=== PATIENT | female | born 2000 | race Caucasian/White ===

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

== ENCOUNTER 2021-07-16 23:57 | Emergency (ER) | payer BC, OTHER ==
--- NOTE | 2021-07-17 00:56 | EDM.PDOC ---
ED HPI GENERAL MEDICAL PROBLEM - General Chief Complaint: Genitourinary Problem Stated Complaint: PEEING BLOOD Time Seen by Provider: 07/17/21 00:28 - History of Present Illness INITIAL COMMENTS - FREE TEXT/NARRATIVE: History of present illness: [] The patient feels like she felt before when she had a bladder infection. She has burning when she urinates and urethral pain. She has pain down into her low suprapubic area and urethra even between urinations. She has frequency and urgency as well. She does not feel like she can empty. She does not have any back pain fever nausea vomiting or other systemic signs of infection. The patient does have blood in her urine this time and that is unusual for her. She does not bleed or bruise easily historically Review of systems: As per history of present illness and below otherwise all systems reviewed and negative. Past medical history: As per history of present illness and as reviewed below otherwise noncontributory. Surgical history: As per history of present illness and as reviewed below otherwise noncontributory. Social history: No reported history of drug or alcohol abuse. Family history: As per history of present illness and as reviewed below otherwise noncontributory. Physical exam: Constitutional - well developed, well-nourished and in no acute distress HEENT - normocephalic, no evidence of trauma - external nose and mouth normal - no mass in neck and no JVD - mucosae moist EYES - full EOM, PERRL, no icterus - no evidence of inflammation, injection, or drainage Respiratory - no respiratory distress, equal bilateral expansion, lungs clear to auscultation and no abnormal lung sounds Cardiovascular - Regular Rhythm with S1 and S2 appreciated and no murmur, gallop or rub. GI - abdomen soft without distension or organomegaly - normal bowel sounds - no guard or rebound Musculoskeletal no gross deformity of long bones or joints - no tenderness, swelling or edema Neurologic - Alert and oriented times four - CN II-XII grossly intact - motor sensory and coordination symmetrically normal Psychiatric - appropriate mood and affect with normal thought content Hematologic - No petechiae or purpura - mucosa appropriate color and sclera not pale - normal nail bed color and refill Integument - no rash or evidence of trauma - normal turgor Diagnostics: [] Therapeutics: [] Impression: [] Plan: [] Definitive disposition and diagnosis as appropriate pending reevaluation and review of above. Pelvic Pain Score (Numeric/FACES): 9 - Related Data Allergies Allergy/AdvReac Type Severity Reaction Status Date / Time midazolam [From Versed] Allergy Cannot Verified 07/17/21 00:36 Remember Home Meds: Home Meds Ethinyl Estradiol/Drospirenone [Loryna 3 mg-0.02 mg Tablet] 1 tab PO DAILY 09/16/18 [History] Sertraline [Zoloft] mg PO DAILY 05/28/19 [History] Escitalopram [Lexapro] 10 mg PO DAILY 07/17/21 [History] Phenazopyridine [Pyridium] 100 mg PO TID PRN #6 tablet 07/17/21 [Rx] nitrofurantoin macrocrystaL [Macrodantin] 50 mg PO QID 5 Days #20 cap 07/17/21 [Rx] Past Medical History Neurological History: Reports: Other (See Below) Other Neuro History: syncopal episodes Psychiatric History: Reports: Anxiety, Depression - Infectious Disease History Infectious Disease History: Reports: None - Past Surgical History HEENT Surgical History: Reports: Oral Surgery Social & Family History - Family History Family Medical History: No Pertinent Family History - Tobacco Use Tobacco Use Status *Q: Never Tobacco User - Caffeine Use Caffeine Use: Reports: Coffee, Energy Drinks - Recreational Drug Use Recreational Drug Use: No ED ROS GENERAL - Review of Systems Review Of Systems: Comprehensive ROS is negative, except as noted in HPI. ED EXAM, GENERAL - Physical Exam Exam: See Below Free Text/Narrative:: My physical exam is in the HPI Course - Vital Signs Last Recorded V/S: Last Vital Signs Temp 36.1 C 07/17/21 00:37 Pulse 91 07/17/21 00:37 Resp 16 07/17/21 00:37 BP 117/72 07/17/21 00:37 Pulse Ox 96 07/17/21 00:37 - Orders/Labs/Meds Orders: Active Orders 24 hr Category Date Time Status CULTURE URINE [MREF] Stat Lab 07/17/21 00:20 Received Labs: Laboratory Tests 07/17/21 07/17/21 Range/Units 00:20 00:20 Urine Color BROWN Urine Appearance SLT CLOUDY Urine pH 6.0 (5.0-8.0) Ur Specific [place] >= 1.030 (1.001-1.035) Urine Protein 100 H (NEGATIVE) mg/dL Urine Glucose (UA) NEGATIVE (NEGATIVE) mg/dL Urine Ketones TRACE H (NEGATIVE) mg/dL Urine Occult Blood LARGE H (NEGATIVE) Urine Nitrite NEGATIVE (NEGATIVE) Urine Bilirubin NEGATIVE (NEGATIVE) Urine Urobilinogen 0.2 (<2.0) EU/dL Ur Leukocyte Esterase MODERATE H (NEGATIVE) Urine RBC 60-70 (0-2/HPF) Urine WBC 50-60 (0-5/HPF) Ur Epithelial Cells FEW (NONE-FEW) Urine Bacteria 1+ H (NEGATIVE) Urine Mucus LIGHT (NONE-MOD) Urine HCG, Qual NEGATIVE (NEGATIVE) Meds: Medications Discontinued Medications Generic Name Dose Route Start Last Admin Trade Name Freq PRN Reason Stop Dose Admin Hydrocodone Bitart/Acetaminophen 1 tab 07/17/21 00:54 07/17/21 01:14 Acetaminophen/Hydrocodone 325-7.5 Mg Tab PO 07/17/21 00:55 1 tab STAT STA Administration Phenazopyridine HCl 200 mg 07/17/21 00:53 07/17/21 01:14 Phenazopyridine 200 Mg Tab PO 07/17/21 00:54 200 mg ONETIME ONE Administration Departure - Departure Time of Disposition: 02:11 Disposition: Home, Self-Care 01 Condition: Good Clinical Impression: Hemorrhagic cystitis - Discharge Information Prescriptions: nitrofurantoin macrocrystaL [Macrodantin] 50 mg PO QID 5 Days #20 cap Phenazopyridine [Pyridium] 100 mg PO TID PRN #6 tablet PRN Reason: Dysuria Instructions: Urinary Tract Infection, Adult, [id number], Hemorrhagic Cystitis Referrals: Segundo Jeff MD [Primary Care Provider] - Forms: ED Department Discharge Additional Instructions: Increase fluids. Cranberry juice advised. [facility] [address] [place] [id number] [place] [address] The following information is given to patients seen in the emergency department who are being discharged to home. This information is to outline your options for follow-up care. We provide all patients seen in our emergency department with a follow-up referral. The need for follow-up, as well as the timing and circumstances, are variable depending upon the specifics of your emergency department visit. If you don't have a primary care physician on staff, we will provide you with a referral. We always advise you to contact your personal physician following an emergency department visit to inform them of the circumstance of the visit and for follow-up with them and/or the need for any referrals to a consulting specialist. The emergency department will also refer you to a specialist when appropriate. This referral assures that you have the opportunity for follow-up care with a specialist. All of these measure are taken in an effort to provide you with optimal care, which includes your follow-up. Under all circumstances we always encourage you to contact your private physician who remains a resource for coordinating your care. When calling for follow-up care, please make the office aware that this follow-up is from your recent emergency room visit. If for any reason you are refused follow-up, please contact the [facility] Emergency Department at and asked to speak to the emergency department charge nurse. Sepsis Event Note (ED) - Focused Exam Vital Signs: Vital Signs Temp Pulse Resp BP Pulse Ox 07/17/21 00:37 36.1 C 91 16 117/72 96 - My Orders Last 24 Hours: My Active Orders 07/17/21 00:20 CULTURE URINE [MREF] Stat - Assessment/Plan Last 24 Hours: My Active Orders 07/17/21 00:20 CULTURE URINE [MREF] Stat
[2021-07-17] MEDS: Acetaminophen/HYDROcodone 325-7.5 MG Tab PO STA (01:14)
[2021-07-17] MEDS: Phenazopyridine 200 MG Tab PO ONE (01:14)
== END 2021-07-17 02:31 | disposition home or self-care (01) ==
LOC: MW.ED 23:57
DX: N30.90 Cystitis, unspecified without hematuria (principal); Z88.4 Allergy status to anesthetic agent
CPT/HCPCS: 81001; 81025; 87086; 87088; 87186; 99283; A9270

== ENCOUNTER 2022-09-03 21:29 | Emergency (ER) | payer OTHER ==
[2022-09-03] MEDS ORDERED: Sodium Chloride 0.9% 2.5 ML Syringe FLUSH PRN (22:12)
[2022-09-03] MEDS ORDERED: Ondansetron 4 MG/2 ML SDV IVPUSH ONE (22:12)
[2022-09-03] MEDS ORDERED: Sodium Chloride 0.9% 10 ML Syringe FLUSH PRN (22:12)
[2022-09-03] MEDS ORDERED: Sodium Chloride 0.9% 1,000 ML IV ONE (22:12)
[2022-09-03] MEDS ORDERED: fentaNYL 50 MCG/ML SDV IVPUSH ONE (22:17)
[2022-09-03 23:15] LABS: CARBON DIOXIDE,CO2 24.1 mmol/L (21.0-32.0); POTASSIUM,K 3.3 mmol/L (3.5-5.1)
[2022-09-04] MEDS ORDERED: Iopamidol 755 Mg/ML 100 ML Bottle IVPUSH ONE (00:09)
== END 2022-09-04 01:01 | disposition home or self-care (01) ==
LOC: MW.ED 21:29
DX: N13.2 Hydronephrosis with renal and ureteral calculous obstruction (principal); Z88.4 Allergy status to anesthetic agent; Z79.899 Other long term (current) drug therapy
CPT/HCPCS: 36415; 74177; 80053; 81001; 83690; 84703; 85025; 87086; 96361; 96374; 96375; 99284; J2405; J3010; J3490; J7030; Q9967

== ENCOUNTER 2022-09-05 09:07 | Emergency (ER) | payer OTHER ==
[2022-09-05] MEDS ORDERED: traMADol 50 MG Tab PO STA (09:48)
[2022-09-05] MEDS ORDERED: Ketorolac 30 MG/ML SDV IM STA (09:49)
[2022-09-05 10:47] LABS: CARBON DIOXIDE,CO2 25.9 mmol/L (21.0-32.0); POTASSIUM,K 3.4 mmol/L (3.5-5.1)
== END 2022-09-05 12:29 | disposition home or self-care (01) ==
LOC: MW.ED 09:07
DX: N20.0 Calculus of kidney (principal); Z88.4 Allergy status to anesthetic agent
CPT/HCPCS: 36415; 80048; 81001; 96372; 99284; A9270; J1885; 99283

== ENCOUNTER 2024-03-25 15:30 | Emergency (ER) | payer OTHER ==
[2024-03-25 16:36] LABS: APPEARANCE,URINE CLEAR; BILIRUBIN,URINE NEGATIVE (NEGATIVE); COLOR,URINE YELLOW; GLUCOSE,URINE NEGATIVE (NEGATIVE); KETONES,URINE NEGATIVE (NEGATIVE); LEUKOCYTE ESTERASE,URINE NEGATIVE (NEGATIVE); NITRITE,URINE NEGATIVE (NEGATIVE); OCCULT BLOOD,URINE NEGATIVE (NEGATIVE); PH,URINE 6.5 (5.0-8.0); PROTEIN,URINE NEGATIVE (NEGATIVE); UROBILINOGEN,URINE 0.2 EU/dL (<2.0)
[2024-03-25 16:36] LABS: BASOPHILS ABSOLUTE AUTO 0.09 K/uL (0.00-0.20); BASOPHILS PERCENT AUTO 0.7 % (0.0-1.0); EOSINOPHILS ABSOLUTE AUTO 0.11 K/uL (0.00-0.45); EOSINOPHILS PERCENT AUTO 0.9 % (0.0-6.0); HEMATOCRIT 39.9 % (37.0-47.0); HEMOGLOBIN 14.3 g/dL (12.0-16.0); IMMATURE GRAN ABSOLUTE AUTO 0.02 K/uL (0.00-0.05); IMMATURE GRAN PERCENT AUTO 0.2 % (0.0-0.4); LYMPHOCYTES ABSOLUTE AUTO 4.65 K/uL (1.00-4.80); LYMPHOCYTES PERCENT AUTO 36.2 % (24.0-44.0); MEAN CORPUSCULAR HEMOGLOBIN 30.1 pg (28.0-32.0); MEAN CORPUSCULAR HGB CONC 35.8 g/dL (32.0-36.0); MEAN PLATELET VOLUME 9.2 fL (9.4-12.3); MONOCYTES ABSOLUTE AUTO 0.73 K/uL (0.00-0.80); MONOCYTES PERCENT AUTO 5.7 % (0.0-8.0); NEUTROPHILS ABSOLUTE AUTO 7.25 K/uL (1.80-7.70); NEUTROPHILS PERCENT AUTO 56.3 % (41.0-71.0); PLATELET COUNT,PLT 344 K/uL (150-400); RED BLOOD CELL COUNT 4.75 M/uL (4.10-5.30); WHITE BLOOD CELL COUNT,WBC 12.85 K/uL (3.9-11.3)
[2024-03-25 17:12] LABS: A/G RATIO 0.8 (0.9-1.6); ALANINE AMINOTRANSFERASE,ALT 21 IU/L (14-63); ALBUMIN 3.3 g/dL (3.4-5.0); ALKALINE PHOSPHATASE 85 U/L (46-116); ASPARTATE AMNIOTRANSFERASE,AST 18 IU/L (15-37); BILIRUBIN TOTAL 0.2 mg/dL (0.2-1.0); BLOOD UREA NITROGEN,BUN 11 mg/dL (7.0-18.0); CARBON DIOXIDE,CO2 27.3 mmol/L (21.0-32.0); CHLORIDE,CL 100 mmol/L (98-107); CREATININE 0.7 mg/dL (0.6-1.0); EST CRCL DRUG DOSING (CG) 89.78 mL/min; GLUCOSE RANDOM 100 mg/dL (74-106); POTASSIUM,K 3.5 mmol/L (3.5-5.1); PROTEIN TOTAL,TP 7.7 g/dL (6.4-8.2); SODIUM,NA 137 mmol/L (136-145)
[2024-03-25 17:23] LABS: ESTIMATED GFR 125 mL/min (>60); HCG QUANTITATIVE < 1.0 mIU/mL
== END 2024-03-25 17:57 | disposition home or self-care (01) ==
LOC: MW.ED 15:30
DX: R10.2 Pelvic and perineal pain (principal); Z75.8 Other problems related to medical facilities and other health care; Z88.4 Allergy status to anesthetic agent
CPT/HCPCS: 36415; 76830; 76830-26; 80053; 81003; 84702; 85025; 99282; 99284

== ENCOUNTER 2024-09-28 15:09 | Emergency (ER) | payer OTHER ==
[2024-09-28] MEDS: Diphtheria,Pertussis(Acell),Tetanus Vaccine 0.5 ML Syringe IM ONE (16:32)
== END 2024-09-28 16:46 | disposition home or self-care (01) ==
LOC: MW.ED 15:09
DX: S61.252A Open bite of right middle finger without damage to nail, initial encounter (principal); Z86.16 Personal history of COVID-19; Z88.4 Allergy status to anesthetic agent; Z75.8 Other problems related to medical facilities and other health care; Z23 Encounter for immunization; W54.0XXA Bitten by dog, initial encounter
CPT/HCPCS: 12001; 90471; 90715; 99283-25